=== PATIENT | male | born 1990 | race Caucasian/White ===

== ENCOUNTER 2017-06-04 15:04 | Emergency (ER) | payer OTHER ==
[2017-06-04 15:11] VITALS: BP 139/76
--- NOTE | 2017-06-04 15:41 | ED Physician Documentation ---
PD HPI LOWER EXT INJURY - Stated complaint Stated Complaint: ANKLE INJURY - Chief complaint Chief Complaint: Ext Problem - History obtained from History obtained from: Patient - History of Present Illness PD HPI LOW EXT INJURY LOCATION: Left, Ankle Type of injury: Twist Where injury occurred: Street Timing - onset: How many hours ago (1) Timing - duration: Hours (1) Timing - details: Gradual onset Pain level max: 6 Pain level now: 4 Improved by: Rest Worsened by: Other (walking) Associated symptoms: Swelling. No: Weakness, Numbness, Tingling Contributing factors: No: Anticoagulated, Prior ortho surgery Similar symptoms before: Has not had sx before Recently seen: Not recently seen - Additional information Additional information: Patient is a 27-year-old male who was out running today when he had an inversion injury of the left ankle, has continued to walk on the ankle since that time, but has become increasingly swollen. Has not taken anything for pain. Review of Systems Skin: denies: Rash Neurologic: denies: Focal weakness, Numbness PD PAST MEDICAL HISTORY - Past Medical History Past Medical History: No - Past Surgical History Past Surgical History: No - Present Medications Home Medications: Ambulatory Orders Medication Instructions Recorded Confirmed Ibuprofen [Motrin] 800 mg PO Q8H PRN #30 tablet 06/04/17 - Allergies Allergies/Adverse Reactions: Allergies Allergy/AdvReac Type Severity Reaction Status Date / Time No Known Drug Allergies Allergy Verified 06/04/17 15:13 - Social History Does the pt smoke?: No Smoking Status: Never smoker Does the pt drink ETOH?: No Does the pt have substance abuse?: No - Immunizations Immunizations are current?: Yes PD ED PE NORMAL - Vitals Vital signs reviewed: Yes - General General: Alert and oriented X 3, No acute distress - Derm Derm: Warm and dry - Extremities Extremities: Other (L ankle - STS lateral malleolus. TTP over the lat malleolus. Normal foot exam. NVI. ) - Neuro Neuro: Alert and oriented X 3 - Psych Psych: Normal mood, Normal affect Results - Vitals Vitals: Vital Signs - 24 hr 06/04/17 15:09 Temperature 36.8 C Heart Rate 79 Respiratory 16 Rate Blood Pressure 139/76 H O2 Saturation 97 Oxygen O2 Source Room air - Rads (name of study) L ankle xray Radiology: Prelim report reviewed, EMP read contemporaneously, See rad report ( Lateral soft tissue swelling. No definite acute osseous abnormality. Ossification along the inferior margin of the lateral malleolus is most consistent with an incidental ossicle.) PD MEDICAL DECISION MAKING - ED course Complexity details: reviewed results, re-evaluated patient, considered differential, d/w patient ED course: Patient is a 27-year-old male who presents to the emergency department with a left ankle sprain. No acute findings on x-ray. Neurovascularly intact. Placed in a gel splint and crutches for comfort. Patient counseled regarding signs and symptoms for which I believe and urgent re-evaluation would be necessary. Patient with good understanding of and agreement to plan and is comfortable going home at this time This document was made in part using voice recognition software. While efforts are made to proofread this document, sound alike and grammatical errors may occur. Declines any pain medication here Departure - Departure Disposition: 01 Home, Self Care Clinical Impression: Left ankle sprain Qualifiers: Encounter type: initial encounter Involved ligament of ankle: unspecified ligament Qualified Code(s): S93.402A - Sprain of unspecified ligament of left ankle, initial encounter Condition: Good Instructions: ED Sprain Ankle W X Ray Follow-Up: your,doctor in 1 week [Other] Prescriptions: Ibuprofen [Motrin] 800 mg PO Q8H PRN #30 tablet PRN Reason: PAIN &/OR FEVER Comments: You may bear weight as tolerated. Use the crutches to help you walk. Continue to wear the brace and follow-up with your doctor for further evaluation and care. Your blood pressure was elevated today on check in to the emergency department. This does not mean that you have hypertension, it is a common phenomenon to check into the emergency department and have elevated blood pressure. I recommend that you see your primary care physician within the week to have it rechecked when you're feeling better. Discharge Date/Time: 06/04/17 16:25
--- NOTE | 2017-06-04 16:03 | XRAY Preliminary Report ---
Exam: XR Ankle 3 View LT IMPRESSION: 1. Lateral soft tissue swelling. 2. No definite acute osseous abnormality. An ossification along the inferior margin of the lateral ma lleolus is most consistent with an incidental ossicle. [facility] SITE ID: [id number]
--- NOTE | 2017-06-04 16:05 | XRAY Report ---
EXAM: LEFT ANKLE RADIOGRAPHY EXAM DATE: 06/04/2017 03:55 PM. CLINICAL HISTORY: Inversion injury of ankle. COMPARISON: None. TECHNIQUE: 3 views. FINDINGS: Bones: No definite acute fracture. A 1 cm ossification along the inferior margin of the lateral malle olus appears corticated/chronic and is most consistent with a developmental ossicle. An old fracture fragment is less likely. An acute fracture is significantly less likely. Joints: Normal. No effusion. No subluxations. The ankle mortise is normally aligned. Soft Tissues: Lateral ankle soft tissue swelling. IMPRESSION: 1. Lateral soft tissue swelling. 2. No definite acute osseous abnormality. An ossification along the inferior margin of the lateral ma lleolus is most consistent with an incidental ossicle. [facility] Referring Provider Line: [phone] SITE ID: [id number]
== END 2017-06-04 16:25 | disposition home or self-care (01) ==
LOC: ED 15:04
DX: S93.402A Sprain of unspecified ligament of left ankle, initial encounter (principal); X50.0XXA Overexertion from strenuous movement or load, initial encounter; Y93.01 Activity, walking, marching and hiking; Y92.488 Other paved roadways as the place of occurrence of the external cause
CPT/HCPCS: 99283